=== PATIENT | male | born 1950 | race Caucasian/White ===

== ENCOUNTER 2018-04-26 06:00 | Day surgery (SDC) | payer OTHER ==
[~2018-04-26 06:00] MED LIST: GRALISE600 MG PO; MOTRIN PO; NORVASC2.5 MG PO; PERCOCET 10-321 EACH PO
== END 2018-04-26 12:59 | disposition home or self-care (01) ==
LOC: CIR.AMB 06:00
DX: M48.061 Spinal stenosis, lumbar region without neurogenic claudication (principal)